=== PATIENT | female | born 1985 | race Caucasian/White ===

== ENCOUNTER 2016-07-26 22:03 | Inpatient (IN) | payer OTHER ==
[~2016-07-26] VITALS: Ht 152.4 cm; Wt 55.6 kg
--- NOTE | ~2016-07-26 | CON ---
[place], [place] REPORT OF CONSULTATION NAME: JAMEL DOS SANTOS UNIT #: [id number] ROOM: 411 DOCTOR: GILSON PETERSON ED.D) BIRTHDATE: [birth year] DOS: 07/28/2016 HISTORY OF PRESENT ILLNESS: The patient is a 30-year-old female referred by the hospitalist for depression. At the present time, this patient is on the 4th floor at [facility]. This patient states she is , although she and her are presently having marital difficulties and she is uncertain whether or not these can be worked out. She does have a 2-year-old daughter. 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 This patient's family physician is Dr. Jeremiah Sandra. PAST MEDICAL HISTORY: The patient's medical history is pertinent for major depression, seizure disorder, fibromyalgia, hypertension, vitamin D deficiency. MEDICATIONS: Include Ventolin, Cymbalta, vitamin D, Neurontin, hydrochlorothiazide, Plaquenil, Keppra, lisinopril, metoprolol, naproxen, potassium chloride and Zanaflex. SOCIAL HISTORY: This patient does not normally drink, although approximately one month ago she did drink an excessive amount of alcohol following issues with her . At that time, there was concern about whether or not she was suicidal. She states that she is definitely not suicidal at this time. This patient was awake, alert and oriented in all three spheres. She does follow with [facility] [place], [place]. She also followed with Dr. Miller at the [facility], but is planning on getting a different therapist. She does have an appointment on 08/06/[address] Jordan. I did talk to [facility] and they will contact the [facility] about possibly getting the patient in to the [facility] at an earlier date, but the patient states she is fine with going on 08/06/2016. She states she is not suicidal and does not need any hospitalization, but has been overwhelmed by her marital issues. She states her mother is quite supportive. At this time, I have no options as far as any type of hospitalization for this patient because she denies any suicidal ideation or plan. She had also told the staff including nurses and the hospitalist and the case management staff that she is not suicidal. DIAGNOSES: Major depressive disorder. RECOMMENDATIONS: The patient to follow with outpatient counseling at the [facility]. Thank you very much for this consult. [place], [place] REPORT OF CONSULTATION NAME: JAMEL DOS SANTOS UNIT #: [id number] ROOM: [facility] DOCTOR: GILSON PETERSON ED.D) BIRTHDATE: [birth year] GILSON PETERSON ED.D CM:CONSTR:REPORT OF CONSULTATION 1203 07/29/16 [id number]
[2016-07-26 22:03] VITALS: BP 162/102
[~2016-07-26 22:03] MED LIST: AMLODIPINE-OLM1 EAC3 PO; CYMBALTA30 MG PO; CYMBALTA60 MG PO; KEPPRA500 MG PO; LISINOPRIL20 MG PO; LISINOPRIL40 MG PO; NAPROSYN500 MG PO; NEURONTIN600 MG PO; NORTRIPTYLINE25 MG PO; PERCOCET 325 MG1 TA2 PO; PLAQUENIL200 MG PO; POTASSIUM CHLO10 ME4 PO; ROPINIROLE HY0.25 MG PO; ROPINIROLE HYD0.5 MG PO; TESSALON PERLE100 MG PO; TOPROL XL25 MG PO; TRAMADOL HCL50 MG PO; TRIAMTERENE & H1 CAP PO; ULTRAM50 MG PO; VENTOLIN H0.09 MG/AC INH; VITAMIN D50000 I3 PO; XANAX1 MG PO; ZANAFLEX4 M1 PO
[2016-07-26] MEDS ORDERED: GOOD NEIGHBOR L10 MG PO (22:14)
[2016-07-26] MEDS ORDERED: ACETAMINOPHEN-H1 TA2 PO (22:15)
[2016-07-26] MEDS ORDERED: BENZONATATE100 M1 PO (22:16)
[2016-07-26 22:52] LABS: BASO # 0.1 10*3/uL (0.0-0.1); BASO % 0.6 % (0.0-1.0); EOS # 0.1 10*3/uL (0.0-0.4); HEMATOCRIT 29.1 % (37.0-47.0); HEMOGLOBIN 8.9 g/dl (12.0-16.0); IG # 0.1 10*3/uL (0.0-0.1); LYMPH # 2.5 10*3/uL (1.3-4.4); LYMPH % 17.6 % (27.0-41.0); MEAN CELL VOLUME 83.6 fl (81.0-99.0); MEAN CORPUSCULAR HGB 25.6 pg (27.0-31.0); MEAN CORPUSCULAR HGB CONC 30.6 g/dl (33.0-37.0); MEAN PLATELET VOLUME 8.7 fl (9.6-12.3); MONO # 1.2 10*3/uL (0.1-1.0); MONO % 8.8 % (3.0-9.0); NEUT % 71.6 % (47.0-73.0); PLATELET COUNT AUTOMATED 658 10*3/uL (130-400); RED BLOOD COUNT 3.48 10*6/uL (4.10-5.10); RED CELL DISTRI WIDTH 20.2 % (0-14.5); WHITE BLOOD COUNT 13.9 10*3/uL (4.8-10.8)
[2016-07-26 23:00] VITALS: BP 167/113
[2016-07-26 23:08] LABS: ALBUMIN 3.7 gm/dl (3.1-4.5); ALKALINE PHOSPHATASE 90 U/L (45-117); BILIRUBIN, TOTAL 0.8 mg/dl (0.2-1.0); BUN 17 mg/dl (7-24); CARBON DIOXIDE 31 mmol/L (21-32); CHLORIDE 105 mmol/L (98-107); EST GLOM FILT AFRICAN AMERICAN > 60 ml/min; GLUCOSE 107 mg/dL (65-99); POTASSIUM 2.9 mmol/L (3.5-5.1); SGOT/AST 15 IU/L (3-35); SGPT/ALT 15 U/L (12-78); SODIUM 148 mmol/L (136-145); TOTAL PROTEIN 7.3 gm/dL (6.4-8.2)
[2016-07-27] VITALS (11 sets, daily range): BP systolic 120–179; BP diastolic 71–133
[2016-07-27 00:13] LABS: URINE AMPHETAMINES < 1000 (1000ng/ml); URINE BARBITURATES < 200 (200ng/ml); URINE COCAINE < 300 (300ng/ml)
[2016-07-27 00:25] LABS: BILIRUBIN NEGATIVE (NEGATIVE); BLOOD 3+ (NEGATIVE); CLARITY SL CLOUDY (CLEAR); COLOR YELLOW (YELLOW); GLUCOSE NEGATIVE (NEGATIVE); KETONE NEGATIVE (NEGATIVE); LEUKO ESTERASE NEGATIVE (NEGATIVE); NITRITE NEGATIVE (NEGATIVE); PH 6.5 (5.0-9.0); PROTEIN NEGATIVE (NEGATIVE); UROBILINOGEN 0.2 E.U./dl (0.2-1.0)
[2016-07-27 00:30] LABS: BACTERIA 3+; EPITHELIAL CELLS 45-50; RBC 41-50 rbc/hpf (0-2)
[2016-07-27 00:31] LABS: URINE REFLEX COMMENT YES (NO)
[2016-07-27 02:14] LABS: MAGNESIUM 1.8 mg/dL (1.5-2.1); PHOSPHOROUS 6.3 mg/dL (2.5-4.9)
[2016-07-27 07:50] LABS: BASO # 0.1 10*3/uL (0.0-0.1); BASO % 0.7 % (0.0-1.0); EOS # 0.2 10*3/uL (0.0-0.4); EOS % 1.5 % (1.0-4.0); HEMATOCRIT 27.3 % (37.0-47.0); HEMOGLOBIN 8.2 g/dl (12.0-16.0); IG # 0.2 10*3/uL (0.0-0.1); LYMPH # 2.9 10*3/uL (1.3-4.4); LYMPH % 19.7 % (27.0-41.0); MEAN CORPUSCULAR HGB 24.9 pg (27.0-31.0); MONO # 1.3 10*3/uL (0.1-1.0); MONO % 8.6 % (3.0-9.0); NEUT # 9.9 10*3/uL (2.3-7.9); NEUT % 68.4 % (47.0-73.0); NUCLEATED RED BLOOD CELL 0.1 % (0.0-0.0); PLATELET COUNT AUTOMATED 653 10*3/uL (130-400); RED BLOOD COUNT 3.29 10*6/uL (4.10-5.10); RED CELL DISTRI WIDTH 20.5 % (0-14.5); WHITE BLOOD COUNT 14.5 10*3/uL (4.8-10.8)
[2016-07-27 07:56] LABS: PROTHROMBIN TIME 10.5 SECONDS (9.0-12.4)
[2016-07-27 08:43] LABS: BUN 11 mg/dl (7-24); CARBON DIOXIDE 26 mmol/L (21-32); CHLORIDE 108 mmol/L (98-107); EST GLOM FILT AFRICAN AMERICAN > 60 ml/min; GLUCOSE 104 mg/dL (65-99); POTASSIUM 3.2 mmol/L (3.5-5.1); SODIUM 145 mmol/L (136-145)
[2016-07-27 09:20] LABS: VITAMIN D, 25-HYDROXY 29.5 ng/mL (30-100)
[2016-07-27 09:21] LABS: FOLIC ACID 8.61 ng/mL (>5.38)
[2016-07-28] VITALS: BP 138/96
[2016-07-28 07:30] LABS: BASO # 0.1 10*3/uL (0.0-0.1); BASO % 0.6 % (0.0-1.0); EOS # 0.4 10*3/uL (0.0-0.4); EOS % 2.9 % (1.0-4.0); HEMATOCRIT 26.8 % (37.0-47.0); IG # 0.1 10*3/uL (0.0-0.1); LYMPH # 3.2 10*3/uL (1.3-4.4); LYMPH % 23.4 % (27.0-41.0); MEAN CELL VOLUME 85.1 fl (81.0-99.0); MEAN CORPUSCULAR HGB 25.4 pg (27.0-31.0); MEAN CORPUSCULAR HGB CONC 29.9 g/dl (33.0-37.0); MEAN PLATELET VOLUME 9.1 fl (9.6-12.3); MONO % 7.5 % (3.0-9.0); NEUT # 8.8 10*3/uL (2.3-7.9); NEUT % 65.2 % (47.0-73.0); PLATELET COUNT AUTOMATED 653 10*3/uL (130-400); RED BLOOD COUNT 3.15 10*6/uL (4.10-5.10); RED CELL DISTRI WIDTH 20.2 % (0-14.5); WHITE BLOOD COUNT 13.5 10*3/uL (4.8-10.8)
[2016-07-28 08:00] VITALS: BP 148/94
[2016-07-28 08:03] LABS: ALBUMIN 2.6 gm/dl (3.1-4.5); BUN 13 mg/dl (7-24); CARBON DIOXIDE 28 mmol/L (21-32); CHLORIDE 109 mmol/L (98-107); EST GLOM FILT AFRICAN AMERICAN > 60 ml/min; GLUCOSE 81 mg/dL (65-99); PHOSPHOROUS 3.6 mg/dL (2.5-4.9); POTASSIUM 3.8 mmol/L (3.5-5.1); SODIUM 144 mmol/L (136-145)
[2016-07-28 09:16] LABS: IRON 12 ug/dL (50-170); IRON SATURATION 2 %; UIBC 391 ug/dL (110-365)
[2016-07-28 12:00] VITALS: BP 152/84
[2016-07-28] MEDS ORDERED: FEOSOL325 MG PO (13:51)
[2016-07-29 18:04] LABS: CREATININE, RANDOM URINE 97.7 mg/dL (Not Estab.)
[2016-08-01 13:08] LABS: METANEPH-CREAT RATIO 0.9 (0.0-1.0)
== END 2016-07-28 15:39 | disposition home or self-care (01) | DRG 100 ==
LOC: ED 22:03 → 4E 07-27 01:38
PROVIDERS: Emergency Medicine Emergency Medical Services; Family Medicine; Internal Medicine; Internal Medicine Hospice and Palliative Medicine; Internal Medicine Nephrology
DX: G40.909 Epilepsy, unspecified, not intractable, without status epilepticus (principal); G93.41 Metabolic encephalopathy; R65.11 Systemic inflammatory response syndrome (SIRS) of non-infectious origin with acute organ dysfunction; E87.0 Hyperosmolality and hypernatremia; L40.50 Arthropathic psoriasis, unspecified; M35.1 Other overlap syndromes; I16.1 Hypertensive emergency; E87.6 Hypokalemia; R00.0 Tachycardia, unspecified; D72.829 Elevated white blood cell count, unspecified; D47.3 Essential (hemorrhagic) thrombocythemia; R73.9 Hyperglycemia, unspecified; F41.9 Anxiety disorder, unspecified; I10 Essential (primary) hypertension; M79.7 Fibromyalgia; D64.9 Anemia, unspecified; F32.9 Major depressive disorder, single episode, unspecified; Z80.3 Family history of malignant neoplasm of breast; Z80.42 Family history of malignant neoplasm of prostate; Z98.890 Other specified postprocedural states; Z79.899 Other long term (current) drug therapy

== ENCOUNTER 2016-08-03 19:15 | Emergency (ER) | payer OTHER ==
[~2016-08-03] VITALS: Ht 154.9 cm; Wt 49.9 kg
[~2016-08-03 19:15] MED LIST changes: +ACETAMINOPHEN-H1 TA2 PO; +BENZONATATE100 M1 PO; +FEOSOL325 MG PO; +GOOD NEIGHBOR L10 MG PO
[2016-08-03 19:51] LABS: BASO # 0.1 10*3/uL (0.0-0.1); BASO % 0.9 % (0.0-1.0); EOS # 0.3 10*3/uL (0.0-0.4); EOS % 3.6 % (1.0-4.0); HEMATOCRIT 29.8 % (37.0-47.0); HEMOGLOBIN 8.7 g/dl (12.0-16.0); IG # 0.1 10*3/uL (0.0-0.1); LYMPH # 4.1 10*3/uL (1.3-4.4); LYMPH % 44.2 % (27.0-41.0); MEAN CELL VOLUME 82.5 fl (81.0-99.0); MEAN CORPUSCULAR HGB 24.1 pg (27.0-31.0); MEAN CORPUSCULAR HGB CONC 29.2 g/dl (33.0-37.0); MEAN PLATELET VOLUME 8.8 fl (9.6-12.3); MONO # 0.7 10*3/uL (0.1-1.0); MONO % 7.4 % (3.0-9.0); NEUT % 43.2 % (47.0-73.0); PLATELET COUNT AUTOMATED 737 10*3/uL (130-400); RED BLOOD COUNT 3.61 10*6/uL (4.10-5.10); RED CELL DISTRI WIDTH 19.2 % (0-14.5); WHITE BLOOD COUNT 9.2 10*3/uL (4.8-10.8)
[2016-08-03 20:24] LABS: B-hCG (QUALITATIVE) NEGATIVE (NEGATIVE); BUN 7 mg/dl (7-24); CARBON DIOXIDE 31 mmol/L (21-32); CHLORIDE 109 mmol/L (98-107); EST GLOM FILT AFRICAN AMERICAN > 60 ml/min; GLUCOSE 93 mg/dL (65-99); POTASSIUM 3.5 mmol/L (3.5-5.1); SODIUM 149 mmol/L (136-145)
== END 2016-08-03 20:03 | disposition left against medical advice (07) ==
LOC: ED 19:15
PROVIDERS: Emergency Medicine Emergency Medical Services
DX: F10.129 Alcohol abuse with intoxication, unspecified (principal); F41.9 Anxiety disorder, unspecified; F32.9 Major depressive disorder, single episode, unspecified; I10 Essential (primary) hypertension; E87.6 Hypokalemia

== ENCOUNTER 2017-08-29 05:58 | Emergency (ER) | payer OTHER ==
[~2017-08-29] VITALS: Ht 152.4 cm; Wt 56.7 kg
[2017-08-29 06:52] LABS: BASO # 0.1 10*3/uL (0.0-0.1); BASO % 0.5 % (0.0-1.0); EOS % 0.2 % (1.0-4.0); HEMATOCRIT 43.3 % (37.0-47.0); HEMOGLOBIN 14.4 g/dl (12.0-16.0); LYMPH # 2.5 10*3/uL (1.3-4.4); LYMPH % 15.3 % (27.0-41.0); MEAN CELL VOLUME 80.9 fl (81.0-99.0); MEAN CORPUSCULAR HGB 26.9 pg (27.0-31.0); MEAN CORPUSCULAR HGB CONC 33.3 g/dl (33.0-37.0); MEAN PLATELET VOLUME 9.7 fl (9.6-12.3); MONO # 0.7 10*3/uL (0.1-1.0); MONO % 4.3 % (3.0-9.0); NEUT # 13.1 10*3/uL (2.3-7.9); NEUT % 79.4 % (47.0-73.0); PLATELET COUNT AUTOMATED 473 10*3/uL (130-400); RED BLOOD COUNT 5.35 10*6/uL (4.10-5.10); RED CELL DISTRI WIDTH 14.6 % (0-14.5); WHITE BLOOD COUNT 16.5 10*3/uL (4.8-10.8)
[2017-08-29 07:13] LABS: ALBUMIN 3.8 gm/dl (3.1-4.5); ALKALINE PHOSPHATASE 85 U/L (45-117); BUN 10 mg/dl (7-24); CHLORIDE 99 mmol/L (98-107); CREATININE 0.82 mg/dL (0.55-1.02); LIPASE 113 U/L (73-393); POTASSIUM 3.7 mmol/L (3.5-5.1); SGOT/AST 23 IU/L (3-35); SGPT/ALT 25 U/L (12-78); SODIUM 136 mmol/L (136-145); TOTAL PROTEIN 8.5 gm/dL (6.4-8.2)
[2017-08-29 07:16] LABS: B-hCG (QUALITATIVE) NEGATIVE (NEGATIVE)
[2017-08-29 07:26] LABS: BILIRUBIN NEGATIVE (NEGATIVE); BLOOD NEGATIVE (NEGATIVE); CLARITY SL CLOUDY (CLEAR); COLOR YELLOW (YELLOW); GLUCOSE NEGATIVE (NEGATIVE); KETONE NEGATIVE (NEGATIVE); LEUKO ESTERASE NEGATIVE (NEGATIVE); NITRITE NEGATIVE (NEGATIVE); PH 6.5 (5.0-9.0); SPECIFIC GRAVITY 1.015 (1.005-1.030); UROBILINOGEN 0.2 E.U./dl (0.2-1.0)
[2017-08-29 07:47] LABS: WBC 0-2 wbc/hpf (0-5)
[2017-08-29] MEDS ORDERED: ZOFRAN ODT4 MG SL (08:02)
== END 2017-08-29 08:42 | disposition home or self-care (01) ==
LOC: ED 05:58
PROVIDERS: Emergency Medicine Emergency Medical Services
DX: K52.9 Noninfective gastroenteritis and colitis, unspecified (principal); I10 Essential (primary) hypertension; G40.909 Epilepsy, unspecified, not intractable, without status epilepticus; E87.1 Hypo-osmolality and hyponatremia; M79.7 Fibromyalgia; E83.39 Other disorders of phosphorus metabolism; F10.10 Alcohol abuse, uncomplicated; F41.9 Anxiety disorder, unspecified; F32.9 Major depressive disorder, single episode, unspecified; Z79.899 Other long term (current) drug therapy; Z90.89 Acquired absence of other organs